=== PATIENT | male | born 1985 | race Caucasian/White ===

== ENCOUNTER 2016-12-29 12:59 | Emergency (ER) | payer SELFPAY ==
[2016-12-29 13:19] VITALS: BP 127/89; PULSE 112; TEMP 98.5; BMI 29.4
--- NOTE | 2016-12-29 14:01 | PDOC ---
History of Present Illness - General Chief Complaint: Rash Stated Complaint: RASH Time Seen by Provider: 12/29/16 13:29 History Source: Patient - History of Present Illness Timing/Duration: reports: other Past History - Past Medical History Allergies/Adverse Reactions: Allergies Allergy/AdvReac Type Severity Reaction Status Date / Time Penicillins Allergy Intermediate Difficulty Verified 12/29/16 13:15 Breathing seafood Allergy Intermediate Difficulty Uncoded 12/29/16 13:15 Breathing Home Medications: Ambulatory Orders Cephalexin Monohydrate [Keflex] 500 mg PO BID #14 capsule 12/04/12 Ibuprofen [Motrin -] 600 mg PO QID #15 tablet 12/04/12 Clindamycin [Cleocin -] 300 mg PO Q6HPO #28 capsule 12/29/16 Clotrimazole [Clotrimazole AF] 28 gm TP BID #1 tube 12/29/16 Suicide Attempt (Hx): No Other medical history: DENIES. - Immunization History Td Vaccination: Yes (tetanus) - Psycho/Social/Smoking Cessation Hx Anxiety: No Suicidal Ideation: No Smoking Status: No Smoking History: Never smoked Years of Tobacco Use: 0 Number of Cigarettes Smoked Daily: 0 Cigars Per Day: 0 Substance Use Type: None Review of Systems - Review of Systems Constitutional: No: Chills, Fever ABD/GI: No: Nausea, Vomiting : Yes: Other. No: Dysuria, Flank Pain, Hematuria, Testicular Mass, Testicular Swelling *Physical Exam - Vital Signs Last Vital Signs Temp Pulse Resp BP Pulse Ox 98.5 F 112 H 19 127/89 99 12/29/16 13:15 12/29/16 13:15 12/29/16 13:15 12/29/16 13:15 12/29/16 13:15 - Physical Exam General Appearance: Yes: Appropriately Dressed. No: Apparent Distress HEENT: positive: Normal Voice Neck: positive: Supple Respiratory/Chest: negative: Respiratory Distress Gastrointestinal/Abdominal: positive: Soft. negative: Tender Male Genitalia: positive: other (Tight foreskin w/ blotchy erythmatous edge with dry appearance and minimal amount of curdlike discharge c/w ?srinivasan, no ulcers/cancre noted, able to fully expose urethra w/ no urethral discharge) Medical Decision Making - Medical Decision Making 12/29/16 13:55 31 yo male, h/o ?balanitis, p/w penile itching w/ pain, discharge and foreskin tightness that started several months ago and has been worsening. Pt states he used OTC Monistat cream w/ no relief. Had similar episode when he was a teenager and dx w/ "yeast" as per pt. No urethral discharge, dysuria,testicular swelling, pain, n/v/f/c. Denies h/o STDs. Currently sexually active w/ only per pt. Also c/o pruritic rash to b/l UEs since last night. Suspects its 2/ 2 to "the heat". States rash since improved. See exam Balanitis w/ phimosis Recurrent Able to fully expose urethra -CXs pending -dc w/ antifungal cream and po abx (pen allergic) - referral given -strict ER return precautions given Non-specific dermatitis -dc w/ otc antihistamine as needed 12/29/16 14:18 *DC/Admit/Observation/Transfer Diagnosis at time of Disposition: Balanitis circinata, Dermatitis - Discharge Dispostion Disposition: HOME Condition at time of disposition: Good - Prescriptions Prescriptions: Clindamycin [Cleocin -] 300 mg PO Q6HPO #28 capsule Clotrimazole [Clotrimazole AF] 28 gm TP BID #1 tube - Referrals Referrals: Herrera Valdivia MD [Staff Physician] - - Patient Instructions Printed Discharge Instructions: DI for Balanitis Additional Instructions: It is important to maintain good hygiene in the uncircumcised male. Retraction of the foreskin with thorough genital cleansing can be both preventive and therapeutic. In addition to the medications you were given, you can bath the affected area with saline twice a day. Overuse of detergents, soaps, perfumes, condoms, and other chemicals (spermicidal agents, petroleum jelly), similar to poor hygiene, can also result in inflammation to the skin of the glans/ foreskin. If symptoms do not improve, fooow up with a urologist. Return to ED immediately if foreskin is so tight that you are unable to urinate Call [phone] for test results in 3 days
[2016-12-29 14:24] LABS: URINE APPEARANCE SLCLOUDY; URINE BILIRUBIN NEGATIVE (NEGATIVE); URINE BLOOD 2+ (NEGATIVE); URINE COLOR YELLOW; URINE GLUCOSE (UA) 3+ (NEGATIVE); URINE KETONE TRACE (NEGATIVE); URINE LEUK ESTERASE TRACE (NEGATIVE); URINE NITRITE NEGATIVE (NEGATIVE)
[2016-12-29 14:34] LABS: URINE PROTEIN 1+ (NEGATIVE)
[2016-12-29 14:40] LABS: URINE MUCUS MODERATE; URINE RBC 11 /hpf (0-3); URINE WBC 1 /hpf (3-5); YEAST RARE
== END 2016-12-29 14:06 | disposition home or self-care (01) ==
LOC: JERFT 12:59
DX: N47.1 Phimosis (principal); N48.1 Balanitis; L30.8 Other specified dermatitis
CPT/HCPCS: 36415; 81003; 81015; 87070; 87077; 87186; 87205; 87491; 87591; 99281-25

== ENCOUNTER 2017-06-20 08:36 | Emergency (ER) | payer SELFPAY ==
[2017-06-20 08:59] VITALS: BP 133/72; PULSE 101; TEMP 99; BMI 29.2
--- NOTE | 2017-06-20 09:43 | PDOC ---
History of Present Illness - General Chief Complaint: Wound Infection Stated Complaint: LEFT LEG PAIN Time Seen by Provider: 06/20/17 09:31 History Source: Patient Exam Limitations: No Limitations - History of Present Illness Initial Comments: 06/20/17 09:42 31 yr male no medical history allergy to PCN presents with 5 days left lower leg redness, pain "possible insect bite or pimple" pt states he picked at it and is now red and swollen . no fever no chills, does not take any meds. Past History - Past Medical History Allergies/Adverse Reactions: Allergies Allergy/AdvReac Type Severity Reaction Status Date / Time Penicillins Allergy Intermediate Difficulty Verified 06/20/17 08:57 Breathing seafood Allergy Intermediate Difficulty Uncoded 06/20/17 08:57 Breathing Home Medications: Ambulatory Orders NK [No Known Home Medication] 06/20/17 COPD: No Thyroid Disease: No - Immunization History Td Vaccination: Yes (tetanus) - Suicide/Smoking/Psychosocial Hx Smoking Status: No Smoking History: Never smoked Years of Tobacco Use: 0 Have you smoked in the past 12 months: No Number of Cigarettes Smoked Daily: 0 Cigars Per Day: 0 Information on smoking cessation initiated: No Hx Alcohol Use: No Drug/Substance Use Hx: No Substance Use Type: None *Physical Exam - Vital Signs Last Vital Signs Temp Pulse Resp BP Pulse Ox 99 F 101 H 18 133/72 100 06/20/17 08:54 06/20/17 08:54 06/20/17 08:54 06/20/17 08:54 06/20/17 08:54 - Physical Exam General Appearance: Yes: Nourished, Appropriately Dressed HEENT: positive: EOMI, BRANDIE Neck: positive: Supple Respiratory/Chest: positive: Lungs Clear, Normal Breath Sounds Cardiovascular: positive: Regular Rhythm, Regular Rate Musculoskeletal: positive: Normal Inspection Extremity: positive: Normal Capillary Refill, Normal Range of Motion, Swelling ( left lower ankle nonpitting edema , left lower posterior leg with erythema, warm to touch , surrounding center lesion with scabbed cebter no drainage ) ED Treatment Course - LABORATORY CBC & Chemistry Diagram: 06/20/17 09:45 06/20/17 09:45 Medical Decision Making - Medical Decision Making 06/20/17 09:44 cc: left lower leg with redness, swelling , possible infected bite or ingrown hair that is now red with a scabbed center and surrounding warmth, edema and redness will check labs blood cultures IVAb arnaldo 06/20/17 10:35 pt states he has a bottle of clindamycin at home that he did not take from a previous visit in December. pt states the medication was 60 dollars so he saved it. I have verified from previous visit that clinda was prescribed 300mg qid for 7 days i will have pt take that medication and follow up in 48hrs for a wound check pt has no PMD I will refer to pt understands th improtance of follow up I have marked the area with a surgical marker *DC/Admit/Observation/Transfer Diagnosis at time of Disposition: Cellulitis Qualifiers: Site of cellulitis: extremity Site of cellulitis of extremity: lower extremity Laterality: left Qualified Code(s): L03.116 - Cellulitis of left lower limb - Referrals Referrals: Beau Ledezma MD [Staff Physician] - Matthias Bain MD [Staff Physician] - - Patient Instructions Printed Discharge Instructions: DI for Wound Infection Additional Instructions: please return in 48hours for a wound check return sooner if any fever, chills, nausea vomiting, redness extends beyond the marking pen take the clindamycin as directed for 7 days that you have at home take a probiotic (over the counter in [place]) and eat yogurt 2 cups daily apply mosit warm heat every 3hrs for 20 minutes to the area and keep the leg elevated you should also follow with the general surgeon Dr. Bain in one week to have the area monitored and if any drainage is needed follow with for primary care - Post Discharge Activity
[2017-06-20] MEDS ORDERED: CLINDAMYCIN 600MG PREMIX IVPB 600 MG/50 ML BAG IVPB STA (10:03)
[2017-06-20] MEDS ORDERED: CLINDAMYCIN 600MG PREMIX IVPB 600 MG/50 ML BAG IVPB ONE (10:16)
[2017-06-20 10:19] LABS: BASO % 0.6 % (0-2.0); HEMATOCRIT 48.6 % (35.4-49); LYMPH % 18.6 % (8-40); MCH 28.1 pg (25.7-33.7); MEAN CELL VOLUME 80.3 fl (80-96); MEAN PLT VOLUME 8.7 fl (7.5-11.1); NEUT % 70.8 % (42.8-82.8); PLATELET COUNT 185 K/MM3 (134-434); RBC 6.06 M/mm3 (4.00-5.60); RDW 12.8 % (11.9-15.9); WHITE BLOOD COUNT 7.3 K/mm3 (4.0-10.0)
[2017-06-20 10:45] LABS: ALBUMIN 3.7 g/dl (3.4-5.0); ALK PHOS 98 U/L (45-117); ANION GAP 7 (8-16); BILIRUBIN,TOTAL 0.8 mg/dL (0.2-1.0); BLOOD UREA NITROGEN 13 mg/dL (7-18); CALCIUM 8.7 mg/dL (8.5-10.1); CHLORIDE 100 mmol/L (98-107); CO2 27 mmol/L (21-32); CREATININE 0.7 mg/dL (0.7-1.3); GLUCOSE,RANDOM 278 mg/dL (74-106); POTASSIUM 3.9 mmol/L (3.5-5.1); SGOT/AST 8 U/L (15-37); SGPT/ALT 15 U/L (12-78); SODIUM 134 mmol/L (136-145); TOT PROT 7.5 g/dl (6.4-8.2)
== END 2017-06-20 11:24 | disposition home or self-care (01) ==
LOC: JER 08:36 → JERFT 08:36
DX: L03.116 Cellulitis of left lower limb (principal)
CPT/HCPCS: 36415; 80053; 85025; 87040; 99281-25

== ENCOUNTER 2018-05-19 16:37 | Emergency (ER) | payer SELFPAY ==
[2018-05-19 17:01] VITALS: BP 130/86; PULSE 126; TEMP 98.7; BMI 29.4
--- NOTE | 2018-05-19 17:29 | PDOC ---
History of Present Illness - General Chief Complaint: Injury Stated Complaint: ANKLE SWELLING AND PAIN Time Seen by Provider: 05/19/18 17:14 History Source: Patient Exam Limitations: No Limitations - History of Present Illness Initial Comments: 05/19/18 17:28 Patient is a 32-year-old male past medical history who presents to emergency Department 1 week of left ankle swelling. Patient states that he missed one rung on a step ladder approximately 1 foot off the ground. He states that he rolled his ankle and it swelled since. He states that the bruising or so he presented to the emergency department today. Denies numbness and tingling to the extremity, weakness of the extremity and fever. Past History - Travel Traveled outside of the country in the last 30 days: No Close contact w/someone who was outside of country & ill: No - Past Medical History Allergies/Adverse Reactions: Allergies Allergy/AdvReac Type Severity Reaction Status Date / Time Penicillins Allergy Intermediate Difficulty Verified 05/19/18 16:57 Breathing seafood Allergy Intermediate Difficulty Uncoded 05/19/18 16:57 Breathing Home Medications: Ambulatory Orders NK [No Known Home Medication] 06/20/17 Asthma: Yes COPD: No Thyroid Disease: No - Immunization History Td Vaccination: Yes (tetanus) - Suicide/Smoking/Psychosocial Hx Smoking Status: No Smoking History: Never smoked Years of Tobacco Use: 0 Have you smoked in the past 12 months: No Number of Cigarettes Smoked Daily: 0 Cigars Per Day: 0 Hx Alcohol Use: No Drug/Substance Use Hx: No Substance Use Type: None Review of Systems - Review of Systems Able to Perform ROS?: Yes Comments:: 05/19/18 17:23 CONSTITUTIONAL: Absent: fever, chills, diaphoresis, generalized weakness, malaise, loss of appetite HEENT: Absent: rhinorrhea, nasal congestion, throat pain, throat swelling, difficulty swallowing, mouth swelling, ear pain, eye pain, visual Changes CARDIOVASCULAR: Absent: chest pain, loss of consciousness, palpitations, irregular heart rate, peripheral edema RESPIRATORY: Absent: cough, shortness of breath, dyspnea with exertion, orthopnea, wheezing, stridor, hemoptysis GASTROINTESTINAL: Absent: abdominal pain, abdominal distension, nausea, vomiting, diarrhea, constipation, melena, hematochezia GENITOURINARY: Absent: dysuria, frequency, urgency, hesitancy, hematuria, flank pain, genital pain MUSCULOSKELETAL: Present: L ankle pain /swelling Absent: arthralgia, joint swelling SKIN: Absent: rash, itching, pallor HEMATOLOGIC/IMMUNOLOGIC: Absent: easy bleeding, easy bruising, lymphadenopathy, frequent infections ENDOCRINE: Absent: unexplained weight gain, unexplained weight loss, heat intolerance, cold intolerance NEUROLOGIC: Absent: headache, focal weakness or paresthesias, dizziness, unsteady gait, seizure, mental status changes, bladder or bowel incontinence PSYCHIATRIC: Absent: anxiety, depression, suicidal or homicidal ideation, hallucinations. Is the patient limited Divehi proficient: No *Physical Exam - Vital Signs Last Vital Signs Temp Pulse Resp BP Pulse Ox 98.7 F 126 H 18 130/86 99 05/19/18 16:57 05/19/18 16:57 05/19/18 16:57 05/19/18 16:57 05/19/18 16:57 - Physical Exam Comments: 05/19/18 17:24 GENERAL: Well developed, well nourished. Awake and alert. No acute distress. MUSCULOSKELETAL Swelling and TTP of the L medial malleolus. Normal range of motion at all joints. No bony deformities or tenderness. No CVA tenderness. EXTREMITIES: No cyanosis. No clubbing. No edema. No calf tenderness. SKIN: Bruising to the arch of the L ankle. Warm and dry. Normal capillary refill. No rashes. No jaundice. NEUROLOGICAL: Alert, awake, appropriate. Cranial nerves 2-12 intact. No deficits to light touch and temperature in face, upper extremities and lower extremities. No motor deficits in the in face, upper extremities and lower extremities. Normoreflexic in the upper and lower extremities. Normal speech. Toes are down- going bilaterally. Gait is normal without ataxia. PSYCHIATRIC: Cooperative. Good eye contact. Appropriate mood and affect. Moderate Sedation - Procedure Monitoring Vital Signs: Procedure Monitoring Vital Signs Temperature 98.7 F 05/19/18 16:57 Pulse Rate 126 H 05/19/18 16:57 Respiratory Rate 18 05/19/18 16:57 Blood Pressure 130/86 05/19/18 16:57 O2 Sat by Pulse Oximetry (%) 99 05/19/18 16:57 Medical Decision Making - Medical Decision Making 05/19/18 18:18 Wet read of x-ray is negative for ankle/foot fractures Most likley an ankle sprain at this time PMS intact in the L foot Will dc home with air cast and rob wrap Ortho follow up given DC home I discussed the physical exam findings, ancillary test results and final diagnoses with the patient. I answered all of the patient's questions. The patient was satisfied with the care received and felt comfortable with the discharge plan and treatment plan. The Patient agrees to follow up with the primary care physician/specialist within 24-72 hours. Return precautions were given. *DC/Admit/Observation/Transfer Diagnosis at time of Disposition: Ankle sprain Qualifiers: Encounter type: initial encounter Involved ligament of ankle: unspecified ligament Laterality: left Qualified Code(s): S93.402A - Sprain of unspecified ligament of left ankle, initial encounter - Discharge Dispostion Condition at time of disposition: Stable Decision to Admit order: No - Referrals Referrals: Amari Sanders MD [Staff Physician] - - Patient Instructions Printed Discharge Instructions: DI for Ankle Sprain Additional Instructions: You sprained your ankle. Your x-ray was negative for broken bones. Please keep your ankle elevated while at rest above the level of your heart to reduce swelling. You may take Motrin 800 mg every 8 hours to help reduce pain and swelling. Please ice the area for 20 minute intervals at least 5 times a day to help reduce swelling. Please wear the Rob wrap. Please follow-up with orthopedics in 1 week if your symptoms are not improving. Return to the emergency department if you have worsening pain, or unable to walk , numbness and tingling of the foot, or had any changes in her symptoms. - Post Discharge Activity Forms/Work/School Notes: Back to Work
== END 2018-05-19 18:22 | disposition home or self-care (01) ==
LOC: JERFT 16:37
DX: S93.402A Sprain of unspecified ligament of left ankle, initial encounter (principal); X58.XXXA Exposure to other specified factors, initial encounter; Y93.89 Activity, other specified; Y92.89 Other specified places as the place of occurrence of the external cause; J45.909 Unspecified asthma, uncomplicated
CPT/HCPCS: 73610-TC-LT-FY; 73630-TC-LT; 99281-25

== ENCOUNTER 2021-01-08 16:31 | Emergency (ER) | payer OTHER ==
[2021-01-08] MEDS ORDERED: CASIRIVIMAB (REGN10933) 600 MG, IMDEVIMAB (REGN10987) 600 MG in SODIUM CHLORIDE 100 ML IVPB ONE (17:17)
[2021-01-08 17:20] VITALS: BMI 34.7
[2021-01-08 18:10] LABS: BASO % 0.4 % (0-2.0); EOS % 0.2 % (0-4.5); HEMATOCRIT 42.6 % (35.4-49); LYMPH % 19.3 % (8-40); MCH 28.6 pg (25.7-33.7); MCHC 35.2 g/dl (32.0-35.9); MEAN CELL VOLUME 81.1 fl (80-96); MEAN PLT VOLUME 8.5 fl (7.5-11.1); MONO % 15.5 % (3.8-10.2); NEUT % 64.6 % (42.8-82.8); PLATELET COUNT 140 10^3/uL (134-434); RBC 5.26 M/mm3 (4.00-5.60); RDW 13.4 % (11.9-15.9); WHITE BLOOD COUNT 4.2 K/mm3 (4.0-10.0)
[2021-01-08 18:37] LABS: CALCIUM 8.6 mg/dL (8.5-10.1)
[2021-01-08 18:38] LABS: BLOOD UREA NITROGEN 16.6 mg/dL (7-18)
[2021-01-08 18:41] LABS: CREATININE 1.2 mg/dL (0.55-1.3)
[2021-01-08 18:43] LABS: BILIRUBIN,TOTAL 0.6 mg/dL (0.2-1); TOT PROT 7.6 g/dl (6.4-8.2)
[2021-01-08] MEDS ORDERED: ACETAMINOPHEN 500 MG TABLET (FP) PO ONE (18:43)
[2021-01-08 18:44] VITALS: TEMP 100.8
[2021-01-08] MEDS ORDERED: KETOROLAC TROMETHAMINE 30 MG/1 ML VIAL IVPUSH ONE (19:25)
[2021-01-08] MEDS ORDERED: ACETAMINOPHEN 325 MG TABLET (FP) ONE (19:26)
[2021-01-08] MEDS ORDERED: KETOROLAC TROMETHAMINE 30 MG/1 ML VIAL ONE (19:26)
[2021-01-08 20:12] VITALS: BP 125/71; PULSE 113
== END 2021-01-08 20:15 | disposition home or self-care (01) ==
LOC: JER 16:31
DX: U07.1 COVID-19 (principal)
CPT/HCPCS: 36415; 80053; 85025; 99284-25; M0243; Q0243